=== PATIENT | male | born 1945 | race Caucasian/White ===

== ENCOUNTER 2020-10-03 10:29 | Emergency (ER) | payer OTHER ==
[~2020-10-03] VITALS: Ht 188 cm; Wt 83.0 kg
[2020-10-03] MEDS ORDERED: GLIPIZIDE XL2.5 MG (10:41)
[2020-10-03] MEDS ORDERED: METFORMIN HCL500 M3 (10:41)
[2020-10-03] MEDS ORDERED: ATORVASTATIN CA40 MG (10:41)
[2020-10-03] MEDS ORDERED: CIPRO500 MG PO (13:38)
== END 2020-10-03 14:07 | disposition home or self-care (01) ==
LOC: ER 10:29
DX: L72.3 Sebaceous cyst (principal); L02.212 Cutaneous abscess of back [any part, except buttock and flank]

== ENCOUNTER 2020-12-17 08:45 | Outpatient (CLI) | payer OTHER ==
[~2020-12-17 08:45] MED LIST: ATORVASTATIN CA40 MG; CIPRO500 MG PO; GLIPIZIDE XL2.5 MG; METFORMIN HCL500 M3
== END 2020-12-17 08:52 | disposition home or self-care (01) ==
LOC: TOM 08:45
PROVIDERS: ATTEND Internal Medicine
DX: K57.50 Diverticulosis of both small and large intestine without perforation or abscess without bleeding (principal); K21.9 Gastro-esophageal reflux disease without esophagitis